=== PATIENT | male | born 1995 | race Caucasian/White ===

== ENCOUNTER 2017-03-21 08:16 | Emergency (ER) | payer SELFPAY ==
[2017-03-21 08:20] VITALS: BP 111/73
--- NOTE | 2017-03-21 08:43 | PHYS DOC ---
Past History Past Medical History: No Pertinent History Past Surgical History: No Surgical History Alcohol Use: Rarely Drug Use: None Adult General Chief Complaint Chief Complaint: LACERATION/AVULSION HPI HPI 20-year-old otherwise healthy male presenting to the emergency department after sustaining a laceration to the patient's left eyebrow. He reports that last night around midnight he bent over on a computer chair and slipped and landed on a metal bar (part of the bed frame). He does report lossing consciousness. He has a minimal headache that she describes is sharp nonradiating and without alleviating factors. He denies neck pain. Review of systems is negative for chest pain neck pain shortness of breath abdominal pain or any other injuries. He denies numbness weakness or tingling. All other review of systems is negative unless otherwise noted in history of present illness. Review of Systems Review of Systems SEE ABOVE. Physical Exam Physical Exam Constitutional: Well developed, well nourished, no acute distress, non-toxic appearance. HENT: Normocephalic, patient has a 2 cm laceration in the cranial caudal orientation through the eyebrow without involvement of lacrimal duct., bilateral external ears normal, oropharynx moist, no oral exudates, nose normal. [] Eyes: PERRLA, EOMI, conjunctiva normal, no discharge. [] Neck: Normal range of motion, no tenderness, supple, no stridor. No tenderness of the cervical thoracic or lumbar spine. No step-offs abrasions lacerations or ecchymosis. Cardiovascular:Heart rate regular rhythm, no murmur [] Lungs & Thorax: Bilateral breath sounds clear to auscultation [] Abdomen: Bowel sounds normal, soft, no tenderness, no masses, no pulsatile masses. Skin: Warm, dry, no erythema, no rash. Back: No tenderness, no CVA tenderness. Extremities: No tenderness, no cyanosis, no clubbing, ROM intact, no edema. [] Neurologic: Alert and oriented X 3, normal motor function, normal sensory function, no focal deficits noted. [] Psychologic: Affect normal, judgement normal, mood normal. [] EKG EKG [] Radiology/Procedures Radiology/Procedures [] Course & Med Decision Making Course & Med Decision Making Pertinent Labs and Imaging studies reviewed. (See chart for details) 21-year-old male presenting to the emergency department today after sustaining a laceration after having a head injury last night midnight. No other identifiable injuries present. CT of the head and maxillofacial region were obtained. I had a long risk-benefit discussion with the patient and his mother who is here with him today about the risks of infection after closure of the wound. There is also the adverse effect of not closing the wound given the cosmetic area that it is at. Collectively, the mother and the patient stated that they desired to have the wound closed which I feel is within reason given the patient's timeframe and location of the wound. The wound was then washed out copiously using 500 mL of sterile saline. It was then re-approximated using a simple interrupted technique. Follow up with primary care physician in 5-7 days for suture removal and wound reexamination. The patient was then discharged home in stable condition to follow up with their primary care physician over the next 5 days. They were to return if their symptoms worsened or if they were concerned for any reason. [id number] discharge instructions and return precautions were given. Patient's questions were answered to their satisfaction. Patient is comfortable plan. Dragon Disclaimer Dragon Disclaimer This chart was dictated in whole or in part using Voice Recognition software in a busy, high-work load, and often noisy Emergency Department environment. It may contain unintended and wholly unrecognized errors or omissions. Departure Departure: Impression: Primary Impression: Facial laceration Additional Impressions: Head injury Loss of consciousness Disposition: 01 HOME, SELF-CARE Condition: STABLE Referrals: PCP,CORTES (PCP) DOMINIC DOTSON MD Patient Instructions: Facial Laceration Additional Instructions: Thank you for allowing us to participate in your care today. Come back to the emergency Department if you notice a red rash around the wound or drainage of yellow or green fluid. Followup with your primary care physician in 5-7 days if your symptoms do not improve. If you do not have a primary care provider you can ask for a list of our primary care providers. Return to the emergency department you have any new or concerning findings. This should be evaluated by the primary care physician and any necessary consulting services for continued management within a few days after discharge. Return to emergency room if you have any new or concerning symptoms including but not limited to fever, chills, nausea, vomiting, intractable pain, any new rashes, chest pain, shortness of air, uncontrolled bleeding, difficulty breathing, and/or vision loss. Laceration Repair Lac Repair Indication: Facial laceration Procedure: The patient was placed in the appropriate position and anesthesia around the left eyebrow. 1% buffered lidocaine was injected around the wound. The area was cleaned with 500 mL of sterile saline under pressure by myself. The laceration was then closed using a simple interrupted technique using nonabsorbable sutures. The area was then dressed with a dry sterile dressing. Total repaired wound length: 2cm Other Items: The patient tolerated the procedure well Complications: none. Problem Qualifiers SARA BOWER MD March 21, 2017 08:43
[2017-03-21] MEDS ORDERED: DIPHTH,PERTUSS(ACELL),TET TOX 0.5 ML DISP.SYRIN. VAX IM ONE (08:45)
[2017-03-21] MEDS ORDERED: LIDOCAINE WITH 8.4% SOD BICARB 3 ML DISP.SYRIN. IJ ONE (09:00)
--- NOTE | 2017-03-21 09:40 | RAD ---
Exam performed: CT scan of the head and maxillofacial without contrast. Date of Service: 03/21/17. Comparison: None available. Clinical History: Loss of consciousness with fall. Patient hit head. Laceration over the left with sutures. Technique: Helical acquisitions are obtained from the foramen magnum to the vertex without intravenous administration of contrast. In addition helical acquisitions also obtained through the maxillofacial structures. Sagittal and coronal reformatted images are obtained and reviewed. CT head Findings: The ventricles are midline without evidence of dilatation. Normal angel-white differentiation is maintained. There is no extra axial fluid collection, intraparenchymal hemorrhage or mass lesion. The visualized portions of the orbits, paranasal sinuses and the mastoid air cells appear clear. The calvarium is intact. Impression: 1. No acute intracranial process detected. End impression CT maxillofacial findings: There is normal aeration of both frontal, ethmoid, maxillary and sphenoid sinuses. No air-fluid level, mucoperiosteal thickening or mucus retention cyst is identified. The bony orbital margins and the intraocular contents are bilaterally symmetric and unremarkable. There is soft tissue swelling in the left periorbital and frontal region . Bilateral nasal bones are intact. Both ostiomeatal complexes are preserved. Both parotid and submandibular salivary glands appear preserved. The visualized portion of the brain is normal. Impression: 1. No acute abnormality seen in the CT maxillofacial. Specifically no orbital injuries noted. PQRS Compliance Statement: One or more of the following individualized dose reduction techniques were utilized for this examination: 1. Automated exposure control 2. Adjustment of the mA and/or kV according to patient size 3. Use of iterative reconstruction technique PQRS Compliance Statement: One or more of the following individualized dose reduction techniques were utilized for this examination: 1. Automated exposure control 2. Adjustment of the mA and/or kV according to patient size 3. Use of iterative reconstruction technique
== END 2017-03-21 09:49 | disposition home or self-care (01) ==
LOC: ER 08:16
DX: S06.9X9A Unspecified intracranial injury with loss of consciousness of unspecified duration, initial encounter (principal); S01.112A Laceration without foreign body of left eyelid and periocular area, initial encounter; W01.198A Fall on same level from slipping, tripping and stumbling with subsequent striking against other object, initial encounter; Y93.89 Activity, other specified; Y99.8 Other external cause status; Y92.89 Other specified places as the place of occurrence of the external cause
CPT/HCPCS: 12011; 70450; 70486; 90471; 90715; 99284-25

== ENCOUNTER 2017-05-01 13:33 | Emergency (ER) | payer SELFPAY ==
[2017-05-01 14:15] LABS: BASO # 0.1 x10^3/uL (0.0-0.2); BASO % 1 % (0-3); EOS # 0.3 x10^3/uL (0.0-0.7); EOS % 5 % (0-3); HEMOGLOBIN 15.4 g/dL (13.0-17.5); LYMPH # 2.5 x10^3/uL (1.0-4.8); LYMPH % 43 % (24-48); MEAN CORPUSCULAR HEMOGLOBIN 36 pg (25-35); MEAN CORPUSCULAR HGB CONC 34 g/dL (31-37); MEAN CORPUSCULAR VOLUME 104 fL (79-100); MONO # 0.6 x10^3/uL (0.0-1.1); MONO % 11 % (0-9); NEUT # 2.4 x10^3uL (1.8-7.7); NEUT % 41 % (31-73); PLATELET COUNT 207 x10^3/uL (140-400); RED BLOOD COUNT 4.32 x10^6/uL (4.30-5.70); RED CELL DISTRIBUTION WIDTH 13.9 % (11.5-14.5); WHITE BLOOD COUNT 5.9 x10^3/uL (4.0-11.0)
[2017-05-01 14:28] LABS: ALBUMIN 4.4 g/dL (3.4-5.0); ALBUMIN/GLOBULIN RATIO 1.1 (1.0-1.7); CALCIUM 8.9 mg/dL (8.5-10.1); CREATININE 0.8 mg/dL (0.7-1.3); GFR 119.8; POTASSIUM 3.5 mmol/L (3.5-5.1); TOTAL BILIRUBIN 1.1 mg/dL (0.2-1.0); TOTAL PROTEIN 8.3 g/dL (6.4-8.2)
[2017-05-01 15:20] LABS: BILIRUBIN,URINE NEG (NEG); CLARITY,URINE HAZY; COLOR,URINE AMBER; GLUCOSE,URINE NEG (NEG)
[2017-05-01 15:21] LABS: BACTERIA,URINE 0 /HPF (0-FEW); NITRITE,URINE NEG (NEG); SQUAMOUS EPITHELIAL CELL,UR MOD /LPF; UROBILINOGEN,URINE 1 mg/dL (0.2 mg/dL)
[2017-05-01] MEDS ORDERED: RABE20TA18 PO ×2 (15:26→16:01)
[2017-05-01 15:57] VITALS: BP 112/70
[2017-05-02 21:12] LABS: HCV ANTIBODY <0.1 s/co ratio (0.0-0.9); HEP A IGM ABDY Negative (Negative)
== END 2017-05-01 16:05 | disposition home or self-care (01) ==
LOC: ER 13:33
DX: K76.9 Liver disease, unspecified (principal); K21.9 Gastro-esophageal reflux disease without esophagitis; R55 Syncope and collapse
CPT/HCPCS: 36415; 80053; 80074; 81001; 85027; 99284